=== PATIENT | female | born 1970 | race Two or more races ===

== ENCOUNTER 2022-02-17 06:17 | Day surgery (SDC) | payer OTHER | END 2022-02-17 10:00 | disposition home or self-care (01) | LOC: AMB-ENDOS 06:17 | PROVIDERS: ATTEND Surgery | DX: K31.7 Polyp of stomach and duodenum (principal); Z20.822 Contact with and (suspected) exposure to COVID-19; K44.9 Diaphragmatic hernia without obstruction or gangrene; I10 Essential (primary) hypertension; E66.01 Morbid (severe) obesity due to excess calories ==